=== PATIENT | male | born 1955 ===

== ENCOUNTER 2021-09-15 07:39 | Emergency (ER) | payer SELFPAY ==
[~2021-09-15] VITALS: Ht 172.7 cm; Wt 68.2 kg
[2021-09-15 07:53] VITALS: BP 128/76
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
== END 2021-09-15 10:37 | disposition left against medical advice (07) ==
LOC: ER 07:39
DX: Z53.21 Procedure and treatment not carried out due to patient leaving prior to being seen by health care provider (principal)